=== PATIENT | male | born 1960 | race Caucasian/White ===

== ENCOUNTER → 2017-10-14 | Outpatient (CLI) | payer OTHER, BC | LOC: M CARPUL 08:36 | DX: I11.9 Hypertensive heart disease without heart failure (principal) | CPT/HCPCS: 93306 ==

== ENCOUNTER 2019-01-03 09:29 | Day surgery (SDC) | payer OTHER ==
[~2019-01-03] VITALS: Ht 188 cm; Wt 128.4 kg
[~2019-01-03 09:29] MED LIST: ASPI81TA85 PO; CETI10CH PO; DULO1CAP4 PO; FISH1000 PO; GEMF600T5 PO; GLIP5TAB20 PO; HYDR12CA PO; LOSA25TA14 PO; METF500T13 PO; METO50TA7 PO; NAPR250T4 PO; NS 1,000 ML IV ONE; OMEP20CA4 PO; PREG25CA PO; PROV100T25 PO; SING10TA32 PO
[2019-01-03] MEDS ORDERED: PROPOFOL 200 MG/20 ML VIAL As Ordered ONE ×3 (10:06→11:00)
[2019-01-03] MEDS ORDERED: LIDOCAINE 2% INJ 100 MG/5 ML SDV (FOR ANES.) As Ordered ONE (10:06)
--- NOTE | 2019-01-03 11:49 | ROOR ---
Patient Name: Nikolai Jean Procedure Date: 01/03/2019 10:32 AM Date of : 1960 Age: 58 Room: [facility] Gender: Male Note Status: Finalized Procedure: Upper GI endoscopy Indications: Esophageal reflux Providers: Myron Gandara MD Referring MD: Otto Oakes Md Requesting Provider: Medicines: Monitored Anesthesia Care Complications: No immediate complications. Procedure: Pre-Anesthesia Assessment: - Prior to the procedure, a History and Physical was performed, and patient medications and allergies were reviewed. The patient is competent. The risks and benefits of the procedure and the sedation options and risks were discussed with the patient. All questions were answered and informed consent was obtained. Patient identification and proposed procedure were verified by the physician, the nurse and the anesthesiologist in the endoscopy suite. Mental Status Examination: alert and oriented. Airway Examination: normal oropharyngeal airway and neck mobility. Respiratory Examination: clear to auscultation. CV Examination: normal. Prophylactic Antibiotics: The patient does not require prophylactic antibiotics. Prior Anticoagulants: The patient has taken aspirin, last dose was day of procedure. ASA Grade Assessment: III - A patient with severe systemic disease. After reviewing the risks and benefits, the patient was deemed in satisfactory condition to undergo the procedure. The anesthesia plan was to use monitored anesthesia care (MAC). Immediately prior to administration of medications, the patient was re-assessed for adequacy to receive sedatives. The heart rate, respiratory rate, oxygen saturations, blood pressure, adequacy of pulmonary ventilation, and response to care were monitored throughout the procedure. The physical status of the patient was re-assessed after the procedure. The Endoscope was introduced through the mouth, and advanced to the second part of duodenum. The upper GI endoscopy was accomplished without difficulty. The patient tolerated the procedure well. Findings: A few less than one mm polyps with no bleeding were found 25 cm from the incisors. The polyp was removed with a cold biopsy forceps. Resection and retrieval were complete. Localized mild mucosal changes characterized by cobble stone appearance with tiny polyps were found in the middle third of the esophagus. This was biopsied with a cold forceps for histology. Three tongues of salmon-colored mucosa were present from 36 to 38 cm. The maximum longitudinal extent of these esophageal mucosal changes was 1 cm in length. Biopsies were taken with a cold forceps for histology. Two flecks of blood, no actual bleeding linear gastric ulcers with pigmented material were found in the gastric antrum. The largest lesion was less than one mm in largest dimension. This was biopsied with a cold forceps for histology. Consistent with brunners gland hyperplasia mild mucosal variance characterized by nodularity was found in the duodenal bulb. Impression: - Esophageal polyp(s) were found. Resected and retrieved. - Cobble stone appearance with tiny polyps mucosa in the esophagus. Biopsied. - Marston-colored mucosa suspicious for Bee's esophagus. Biopsied. - Flecks of blood, no actual bleeding gastric ulcers with pigmented material. Biopsied. - Mucosal variant in the duodenum. Recommendation: - Discharge patient to home (ambulatory). - Await pathology results. - Use Protonix (pantoprazole) 40 mg PO daily indefinitely. Myron Gandara MD Myron Gandara MD 01/03/2019 11:48:58 AM Electronically signed by Myron Gandara MD Number of Addenda: 0 Note Initiated On: 01/03/2019 10:32 AM Estimated Blood Loss: Estimated blood loss was minimal.
--- NOTE | 2019-01-03 11:53 | ROOR ---
Patient Name: Nikolai Jean Procedure Date: 01/03/2019 10:34 AM Date of : 1960 Age: 58 Room: [facility] Gender: Male Note Status: Finalized Procedure: Colonoscopy Indications: High risk colon cancer surveillance: Personal history of colonic polyps Providers: Myron Gandara MD Referring MD: Otto Oakes Md Requesting Provider: Medicines: Monitored Anesthesia Care Complications: No immediate complications. Procedure: Pre-Anesthesia Assessment: - Prior to the procedure, a History and Physical was performed, and patient medications and allergies were reviewed. The patient is competent. The risks and benefits of the procedure and the sedation options and risks were discussed with the patient. All questions were answered and informed consent was obtained. Patient identification and proposed procedure were verified by the physician, the nurse and the anesthesiologist in the endoscopy suite. Mental Status Examination: alert and oriented. Airway Examination: normal oropharyngeal airway and neck mobility. Respiratory Examination: clear to auscultation. CV Examination: normal. Prophylactic Antibiotics: The patient does not require prophylactic antibiotics. Prior Anticoagulants: The patient has taken aspirin, last dose was day of procedure. ASA Grade Assessment: III - A patient with severe systemic disease. After reviewing the risks and benefits, the patient was deemed in satisfactory condition to undergo the procedure. The anesthesia plan was to use monitored anesthesia care (MAC). Immediately prior to administration of medications, the patient was re-assessed for adequacy to receive sedatives. The heart rate, respiratory rate, oxygen saturations, blood pressure, adequacy of pulmonary ventilation, and response to care were monitored throughout the procedure. The physical status of the patient was re-assessed after the procedure. The Colonoscope was introduced through the anus and advanced to the cecum, identified by the appendiceal orifice. The colonoscopy was technically difficult and complex due to poor bowel prep and the patient's body habitus. Successful completion of the procedure was aided by lavage. The patient tolerated the procedure fairly well. The quality of the bowel preparation was fair. Findings: The perianal and digital rectal examinations were normal. A diminutive polyp was found in the cecum. The polyp was sessile. The polyp was removed with a cold snare. Resection and retrieval were complete. Estimated blood loss was minimal. Three sessile polyps were found in the descending colon. The polyps were diminutive in size. These polyps were removed with a cold snare. Resection and retrieval were complete. Estimated blood loss was minimal. The retroflexed view of the distal rectum and anal verge was normal and showed no anal or rectal abnormalities. Impression: - Preparation of the colon was fair. - One diminutive polyp in the cecum, removed with a cold snare. Resected and retrieved. - Three diminutive polyps in the descending colon, removed with a cold snare. Resected and retrieved. - The distal rectum and anal verge are normal on retroflexion view. Recommendation: - Discharge patient to home (ambulatory). - Await pathology results. - Repeat colonoscopy in 5 weeks for surveillance. Myron Gandara MD Myron Gandara MD 01/03/2019 11:52:51 AM Electronically signed by Myron Gandara MD Number of Addenda: 0 Note Initiated On: 01/03/2019 10:34 AM Estimated Blood Loss: Estimated blood loss was minimal.
[2019-01-03 12:10] VITALS: BP 133/71
== END 2019-01-03 12:18 | disposition home or self-care (01) ==
LOC: M OPP 09:29
PROVIDERS: ATTEND Surgery
DX: Z12.11 Encounter for screening for malignant neoplasm of colon (principal); Z86.010 Personal history of colon polyps; D12.0 Benign neoplasm of cecum; D12.4 Benign neoplasm of descending colon; K21.9 Gastro-esophageal reflux disease without esophagitis; K22.8 Other specified diseases of esophagus; K31.89 Other diseases of stomach and duodenum; K25.9 Gastric ulcer, unspecified as acute or chronic, without hemorrhage or perforation; K22.70 Barrett's esophagus without dysplasia; I10 Essential (primary) hypertension; E78.5 Hyperlipidemia, unspecified; E11.9 Type 2 diabetes mellitus without complications; M19.90 Unspecified osteoarthritis, unspecified site; F41.9 Anxiety disorder, unspecified; F32.9 Major depressive disorder, single episode, unspecified; G47.30 Sleep apnea, unspecified; R06.83 Snoring; Z87.720 Personal history of (corrected) congenital malformations of eye; Z87.891 Personal history of nicotine dependence; Z91.048 Other nonmedicinal substance allergy status; Z91.018 Allergy to other foods; Z79.82 Long term (current) use of aspirin; Z79.899 Other long term (current) drug therapy; Z79.84 Long term (current) use of oral hypoglycemic drugs

== ENCOUNTER → 2022-01-13 | Outpatient (CLI) | payer BC, OTHER ==
[~2022-01-13] MED LIST changes: -ASPI81TA85 PO; +ASPI81TA86 PO; +LOSA25TA13 PO; -LOSA25TA14 PO; +NAPR-849 PO; -NAPR250T4 PO; -NS 1,000 ML IV ONE; +OMEP1CAP73 PO; -OMEP20CA4 PO
[2022-01-13 15:34] LABS: BASO # 0.1 10^3/uL (0.0-0.2); EOS # 1.1 10^3/uL (0.0-0.5); EOS % 15.3 % (0.0-3.0); HEMATOCRIT 44.5 % (42.0-52.0); HEMOGLOBIN 14.4 g/dl (13.5-17.5); LYMPH # 1.2 10^3/uL (1.5-5.0); LYMPH % 16.2 % (24.0-44.0); MEAN CORPUSCULAR HGB CONC 32.4 g/dl (32.0-36.5); MEAN CORPUSCULAR VOLUME 92.7 fl (80.0-96.0); MONO # 0.8 10^3/uL (0.0-0.8); MONO % 11.6 % (2.0-8.0); NEUTROPHILS % 55.3 % (36.0-66.0); PLATELET COUNT, AUTOMATED 196 10^3/uL (150-450); WHITE BLOOD COUNT 7.2 10^3/uL (4.0-10.0)
[2022-01-13 16:44] LABS: ERYTHROCYTE SEDIMENTATION RATE 4 mm/hr (0-20)
== END ==
LOC: M LAB 12:10 → M PLALAB 12:10
PROVIDERS: ATTEND Orthopaedic Surgery
DX: Z47.89 Encounter for other orthopedic aftercare (principal); Z79.899 Other long term (current) drug therapy

== ENCOUNTER 2022-03-23 22:14 | Emergency (ER) | payer BC, OTHER ==
[~2022-03-23] VITALS: Ht 188 cm; Wt 118.2 kg
[2022-03-24 07:32] LABS: BASO % 0.7 % (0.0-1.0); EOS # 0.7 10^3/uL (0.0-0.5); EOS % 12.2 % (0.0-3.0); HEMATOCRIT 41.2 % (42.0-52.0); HEMOGLOBIN 13.9 g/dl (13.5-17.5); LYMPH # 1.1 10^3/uL (1.5-5.0); LYMPH % 21.1 % (24.0-44.0); MEAN CORPUSCULAR HEMOGLOBIN 30.2 pg (27.0-33.0); MEAN CORPUSCULAR HGB CONC 33.7 g/dl (32.0-36.5); MEAN CORPUSCULAR VOLUME 89.6 fl (80.0-96.0); MONO # 0.6 10^3/uL (0.0-0.8); MONO % 11.8 % (2.0-8.0); NEUTROPHILS # 2.9 10^3/uL (1.5-8.5); NEUTROPHILS % 53.8 % (36.0-66.0); PLATELET COUNT, AUTOMATED 127 10^3/uL (150-450); WHITE BLOOD COUNT 5.4 10^3/uL (4.0-10.0)
[2022-03-24 08:05] LABS: ALBUMIN 3.5 G/DL (3.2-5.2); BILIRUBIN,DIRECT 0.4 MG/DL (<0.4); BILIRUBIN,TOTAL 1.1 MG/DL (0.3-1.2); TOTAL PROTEIN 6.2 G/DL (5.7-8.2)
[2022-03-24] MEDS ORDERED: NS 1,000 ML IV ONE (08:10)
[2022-03-24 08:22] LABS: HEMOGLOBIN A1c 8.5 % (4.0-6.0)
[2022-03-24 08:32] LABS: BLOOD UREA NITROGEN 28 MG/DL (9-23); CALCIUM LEVEL 8.4 MG/DL (8.5-10.1); CARBON DIOXIDE LEVEL 23 MMOL/L (20-31); CHLORIDE LEVEL 102 MMOL/L (98-107); CREATININE FOR GFR 0.89 MG/DL (0.70-1.30); GLOMERULAR FILTRATION RATE > 60.0 (>56); GLUCOSE, FASTING 186 MG/DL (60-100); POTASSIUM SERUM 3.7 MMOL/L (3.5-5.1); SODIUM LEVEL 138 MMOL/L (136-145)
[2022-03-24 08:34] LABS: VENOUS BASE EXCESS -2.8 (-2.0-2.0); VENOUS HCO3 23.3 MEQ/L (23.0-27.0); VENOUS O2 SATURATION 91.4 % (60.0-80.0); VENOUS PARTIAL PRESSURE CO2 45.2 mmHg (38.0-50.0); VENOUS PARTIAL PRESSURE O2 67.1 mmHg (30.0-50.0); VENOUS TOTAL CO2 24.7 MEQ/L (24.0-28.0)
[2022-03-24 10:24] VITALS: BP 128/54
== END 2022-03-24 10:28 | disposition home or self-care (01) ==
LOC: M ED 22:14
DX: E11.65 Type 2 diabetes mellitus with hyperglycemia (principal); Z79.82 Long term (current) use of aspirin; Z79.84 Long term (current) use of oral hypoglycemic drugs; Z79.899 Other long term (current) drug therapy; Z91.89 Other specified personal risk factors, not elsewhere classified; Z91.040 Latex allergy status; Z91.013 Allergy to seafood

== ENCOUNTER 2022-04-28 11:45 | Emergency (ER) | payer OTHER ==
[~2022-04-28] VITALS: Ht 190.5 cm; Wt 125.3 kg
[2022-04-28] MEDS ORDERED: NEOSPORIN OINT 0.9 GM PKT TOP ONE (16:45)
[2022-04-28] MEDS ORDERED: BACI500O8 TOP (16:47)
[2022-04-28] MEDS ORDERED: DOXY-443 PO (16:47)
[2022-04-28 17:04] VITALS: BP 131/67
== END 2022-04-28 18:01 | disposition home or self-care (01) ==
LOC: M ED 11:45
DX: L03.011 Cellulitis of right finger (principal); Z91.040 Latex allergy status; Z91.09 Other allergy status, other than to drugs and biological substances; Z79.82 Long term (current) use of aspirin; Z79.899 Other long term (current) drug therapy

== ENCOUNTER 2023-01-07 15:55 | Emergency (ER) | payer OTHER ==
[~2023-01-07] VITALS: Ht 188 cm; Wt 106.8 kg
[~2023-01-07 15:55] MED LIST changes: +BACI500O8 TOP; +DOXY-443 PO; +MONT-5 PO; -SING10TA32 PO
[2023-01-07] MEDS ORDERED: SEMA1PEN2 (16:09)
[2023-01-07 17:02] LABS: BASO % 0.5 % (0.0-1.0); EOS # 0.8 10^3/uL (0.0-0.5); EOS % 14.4 % (0.0-3.0); HEMATOCRIT 43.9 % (42.0-52.0); HEMOGLOBIN 14.9 g/dl (13.5-17.5); LYMPH # 1.8 10^3/uL (1.5-5.0); LYMPH % 31.2 % (24.0-44.0); MEAN CORPUSCULAR HEMOGLOBIN 29.2 pg (27.0-33.0); MEAN CORPUSCULAR HGB CONC 33.9 g/dl (32.0-36.5); MEAN CORPUSCULAR VOLUME 85.9 fl (80.0-96.0); MONO # 0.4 10^3/uL (0.0-0.8); MONO % 7.5 % (2.0-8.0); NEUTROPHILS # 2.7 10^3/uL (1.5-8.5); NEUTROPHILS % 46.2 % (36.0-66.0); PLATELET COUNT, AUTOMATED 139 10^3/uL (150-450); RED BLOOD COUNT 5.11 10^6/uL (4.30-6.10); WHITE BLOOD COUNT 5.8 10^3/uL (4.0-10.0)
[2023-01-07 17:14] LABS: LIPASE 42 U/L (12-53)
[2023-01-07 17:16] LABS: ALBUMIN 3.6 G/DL (3.2-5.2); ALKALINE PHOSPHATASE 71 U/L (46-116); ALT/SGPT 67 U/L (7.0-40); AST/SGOT 39 U/L (<34); BILIRUBIN,DIRECT 0.4 MG/DL (<0.4); BILIRUBIN,TOTAL 1.1 MG/DL (0.3-1.2); BLOOD UREA NITROGEN 18 MG/DL (9-23); CALCIUM LEVEL 8.7 MG/DL (8.3-10.6); CARBON DIOXIDE LEVEL 29 MMOL/L (20-31); CHLORIDE LEVEL 107 MMOL/L (98-107); CREATININE FOR GFR 0.87 MG/DL (0.70-1.30); GLOMERULAR FILTRATION RATE > 60.0 (>49); GLUCOSE, FASTING 186 MG/DL (74-106); POTASSIUM SERUM 3.8 MMOL/L (3.5-5.1); SODIUM LEVEL 143 MMOL/L (136-145)
[2023-01-07 18:40] LABS: HCG, SERUM QUALITATIVE NEGATIVE
[2023-01-07] MEDS ORDERED: ISOVUE-370 76% 100ML VIAL As Ordered ONE (19:27)
[2023-01-07] MEDS ORDERED: ONDA4TAB6 PO (21:21)
[2023-01-07 21:51] LABS: GC DNA AMPLIFICATION NEGATIVE (NEGATIVE)
[2023-01-07 22:09] VITALS: BP 128/74; TEMP 96.8; O2SAT 96
== END 2023-01-07 22:11 | disposition home or self-care (01) ==
LOC: M ED 15:55
DX: K59.00 Constipation, unspecified (principal); R10.31 Right lower quadrant pain; R10.32 Left lower quadrant pain; E11.40 Type 2 diabetes mellitus with diabetic neuropathy, unspecified; I10 Essential (primary) hypertension; Z79.82 Long term (current) use of aspirin; Z79.84 Long term (current) use of oral hypoglycemic drugs; Z79.899 Other long term (current) drug therapy; Z87.891 Personal history of nicotine dependence; Z91.013 Allergy to seafood; Z91.040 Latex allergy status; Z91.89 Other specified personal risk factors, not elsewhere classified
CPT/HCPCS: 71101; 74177; 76870; 80048; 80076; 81001; 83690; 84703; 85025; 87661; 87810; 87850; 93005; 93976; 99284; Q9967

== ENCOUNTER 2023-01-22 15:48 | Emergency (ER) | payer OTHER ==
[~2023-01-22] VITALS: Ht 190.5 cm; Wt 104.5 kg
[~2023-01-22 15:48] MED LIST changes: +ONDA4TAB6 PO; +SEMA1PEN2
[2023-01-22 16:00] VITALS: TEMP 98
[2023-01-22] MEDS ORDERED: HYDR-3363 (16:20)
[2023-01-22] MEDS ORDERED: NS 1,000 ML IV ONE (16:40)
[2023-01-22 16:54] LABS: BASO % 0.5 % (0.0-1.0); EOS # 0.8 10^3/uL (0.0-0.5); EOS % 12.6 % (0.0-3.0); HEMOGLOBIN 13.5 g/dl (13.5-17.5); LYMPH # 1.4 10^3/uL (1.5-5.0); LYMPH % 21.7 % (24.0-44.0); MEAN CORPUSCULAR HEMOGLOBIN 28.5 pg (27.0-33.0); MEAN CORPUSCULAR HGB CONC 32.9 g/dl (32.0-36.5); MEAN CORPUSCULAR VOLUME 86.7 fl (80.0-96.0); MONO # 0.6 10^3/uL (0.0-0.8); MONO % 8.8 % (2.0-8.0); NEUTROPHILS # 3.5 10^3/uL (1.5-8.5); NEUTROPHILS % 56.2 % (36.0-66.0); PLATELET COUNT, AUTOMATED 118 10^3/uL (150-450); RED BLOOD COUNT 4.73 10^6/uL (4.30-6.10); WHITE BLOOD COUNT 6.3 10^3/uL (4.0-10.0)
[2023-01-22 17:10] LABS: ETHYL ALCOHOL (ETHANOL) < 0.003 % (0.000-0.010)
[2023-01-22 17:12] LABS: ALBUMIN 3.5 G/DL (3.2-5.2); ALKALINE PHOSPHATASE 76 U/L (46-116); ALT/SGPT 61 U/L (7.0-40); AST/SGOT 36 U/L (<34); BILIRUBIN,DIRECT 0.3 MG/DL (<0.4); BILIRUBIN,TOTAL 0.9 MG/DL (0.3-1.2); BLOOD UREA NITROGEN 16 MG/DL (9-23); CALCIUM LEVEL 8.7 MG/DL (8.3-10.6); CARBON DIOXIDE LEVEL 28 MMOL/L (20-31); CHLORIDE LEVEL 105 MMOL/L (98-107); CK-MB VALUE MASS 6.3 NG/ML (<3.6); CPK CREATINE PHOSPHOKINASE 528 U/L (46-171); CREATININE FOR GFR 0.73 MG/DL (0.70-1.30); GLOMERULAR FILTRATION RATE > 60.0 (>49); GLUCOSE, FASTING 136 MG/DL (74-106); MAGNESIUM LEVEL 2.2 MG/DL (1.8-2.4); MB/CK RELATIVE INDEX 1.19 (< OR =4); SODIUM LEVEL 142 MMOL/L (136-145); TOTAL PROTEIN 5.8 G/DL (5.7-8.2)
[2023-01-22 17:14] LABS: THYROID STIMULATING HORMONE 1.229 uIU/ML (0.55-4.78)
[2023-01-22 17:19] LABS: HEMOGLOBIN A1c 6.4 % (4.0-6.0)
[2023-01-22 17:27] LABS: INR 1.05; PARTIAL THROMBOPLASTIN TIME 24.4 SECONDS (24.8-34.2); PROTHROMBIN TIME 13.4 SECONDS (12.5-14.5)
[2023-01-22 18:05] LABS: CK-MB VALUE MASS 6.1 NG/ML (<3.6)
[2023-01-22 18:07] LABS: MB/CK RELATIVE INDEX 1.31 (< OR =4)
[2023-01-22 18:15] VITALS: BP 124/61; O2SAT 94
[2023-01-22] MEDS ORDERED: HYDR-3363 PO (20:01)
[2023-01-22] MEDS ORDERED: INSU100V13 SQ (20:01)
[2023-01-22] MEDS ORDERED: METO100T5 PO (20:04)
[2023-01-22] MEDS ORDERED: LOSA50TA28 PO (20:04)
[2023-01-22] MEDS ORDERED: AMLO1TAB25 PO (20:04)
[2023-01-22] MEDS ORDERED: ROSU40TA4 PO (20:11)
[2023-01-22] MEDS ORDERED: GLYX1TAB PO (20:11)
== END 2023-01-22 21:17 | disposition home or self-care (01) ==
LOC: M ED 15:48
DX: T50.905A Adverse effect of unspecified drugs, medicaments and biological substances, initial encounter (principal); B34.8 Other viral infections of unspecified site; E11.9 Type 2 diabetes mellitus without complications; I10 Essential (primary) hypertension; F17.200 Nicotine dependence, unspecified, uncomplicated; Z79.82 Long term (current) use of aspirin; Z79.899 Other long term (current) drug therapy; Z91.013 Allergy to seafood; Z91.040 Latex allergy status; Z91.89 Other specified personal risk factors, not elsewhere classified

== ENCOUNTER 2023-05-21 14:21 | Emergency (ER) | payer OTHER ==
[~2023-05-21] VITALS: Ht 188 cm; Wt 110.6 kg
[~2023-05-21 14:21] MED LIST changes: +AMLO1TAB25 PO; +GLYX1TAB PO; +HYDR-3363; +HYDR-3363 PO; +INSU100V13 SQ; +LOSA50TA28 PO; +METO100T5 PO; +ROSU40TA4 PO
[2023-05-21] MEDS ORDERED: GOOD8.6T2 (14:45)
[2023-05-21] MEDS ORDERED: PREG300C2 (14:45)
[2023-05-21] MEDS ORDERED: NIAC500T29 (14:45)
[2023-05-21 15:20] LABS: BASO % 0.7 % (0.0-1.0); EOS # 0.5 10^3/uL (0.0-0.5); EOS % 8.8 % (0.0-3.0); HEMATOCRIT 45.5 % (42.0-52.0); HEMOGLOBIN 15.1 g/dl (13.5-17.5); LYMPH # 1.1 10^3/uL (1.5-5.0); MEAN CORPUSCULAR HEMOGLOBIN 28.8 pg (27.0-33.0); MEAN CORPUSCULAR HGB CONC 33.2 g/dl (32.0-36.5); MEAN CORPUSCULAR VOLUME 86.7 fl (80.0-96.0); MONO # 0.5 10^3/uL (0.0-0.8); MONO % 9.5 % (2.0-8.0); NEUTROPHILS # 3.4 10^3/uL (1.5-8.5); NEUTROPHILS % 60.6 % (36.0-66.0); PLATELET COUNT, AUTOMATED 162 10^3/uL (150-450); RED BLOOD COUNT 5.25 10^6/uL (4.30-6.10); WHITE BLOOD COUNT 5.6 10^3/uL (4.0-10.0)
[2023-05-21 15:47] LABS: LIPASE 52 U/L (12-53)
[2023-05-21 15:49] LABS: ALBUMIN 3.8 G/DL (3.2-5.2); ALKALINE PHOSPHATASE 76 U/L (46-116); ALT/SGPT 34 U/L (7.0-40); AST/SGOT 22 U/L (<34); BILIRUBIN,DIRECT 0.4 MG/DL (<0.4); BILIRUBIN,TOTAL 1.2 MG/DL (0.3-1.2); BLOOD UREA NITROGEN 22 MG/DL (9-23); CALCIUM LEVEL 9.6 MG/DL (8.3-10.6); CARBON DIOXIDE LEVEL 28 MMOL/L (20-31); CHLORIDE LEVEL 107 MMOL/L (98-107); GLOMERULAR FILTRATION RATE > 60.0 (>49); GLUCOSE, FASTING 97 MG/DL (74-106); POTASSIUM SERUM 4.3 MMOL/L (3.5-5.1); SODIUM LEVEL 140 MMOL/L (136-145); TOTAL PROTEIN 6.4 G/DL (5.7-8.2)
[2023-05-21] MEDS ORDERED: ISOVUE-370 76% 100ML VIAL As Ordered ONE (20:33)
[2023-05-21 21:43] VITALS: BP 168/86; TEMP 98.4; O2SAT 97
== END 2023-05-21 21:55 | disposition home or self-care (01) ==
LOC: M ED 14:21
DX: D17.1 Benign lipomatous neoplasm of skin and subcutaneous tissue of trunk (principal); E11.9 Type 2 diabetes mellitus without complications; I10 Essential (primary) hypertension; H02.401 Unspecified ptosis of right eyelid; G47.33 Obstructive sleep apnea (adult) (pediatric); Z87.891 Personal history of nicotine dependence; Z91.013 Allergy to seafood; Z91.040 Latex allergy status; Z88.8 Allergy status to other drugs, medicaments and biological substances; Z79.84 Long term (current) use of oral hypoglycemic drugs; Z79.899 Other long term (current) drug therapy; Z79.82 Long term (current) use of aspirin; Z79.4 Long term (current) use of insulin
CPT/HCPCS: 36415; 74177; 76705; 80048; 80076; 83690; 85025; 99284; Q9967

== ENCOUNTER → 2023-05-30 | Outpatient (REF) | payer OTHER ==
[~2023-05-30] MED LIST changes: +GOOD8.6T2; +NIAC500T29; +PREG300C2
[2023-05-30 17:41] LABS: APPEARANCE, URINE CLEAR (CLEAR); BACTERIA, URINE AUTO NEGATIVE (NEGATIVE); BILIRUBIN, URINE AUTO NEGATIVE (NEGATIVE); BLOOD, URINE BLOOD NEGATIVE (NEGATIVE); COLOR, URINE STRAW (YELLOW); GLUCOSE, URINE (UA) AUTO 3+ mg/dL (NEGATIVE); KETONE, URINE AUTO NEGATIVE (NEGATIVE); LEUKOCYTE ESTERASE, URINE AUTO NEGATIVE (NEGATIVE); NITRITE, URINE AUTO NEGATIVE (NEGATIVE); PROTEIN, URINE AUTO NEGATIVE (NEGATIVE); RBC, URINE AUTO 0 /HPF (0-3); SPECIFIC GRAVITY URINE AUTO 1.017 (1.002-1.035); SQUAMOUS EPITHELIAL CELL UR AU 0 /HPF (0-6); UROBILINOGEN, URINE AUTO 0.2 mg/dL (0.0-2.0); WBC, URINE AUTO 0 /HPF (0-3)
== END ==
LOC: M SMT 16:51
PROVIDERS: ATTEND Nurse Practitioner Family
DX: R39.15 Urgency of urination (principal); B96.4 Proteus (mirabilis) (morganii) as the cause of diseases classified elsewhere

== ENCOUNTER 2023-07-29 06:45 | Day surgery (SDC) | payer BC, OTHER ==
[~2023-07-29] VITALS: Ht 188 cm; Wt 106.4 kg
[~2023-07-29 06:45] MED LIST changes: +ASPI-615 PO; +DOXY-323 PO; -DOXY-443 PO; +LANTINJ4 SQ; -ROSU40TA4 PO; +ROSU40TA63 PO; +SIMETHICONE 40MG/0.6ML DROPS 30ML As Ordered ONE; +TEST200I14 IM
[2023-07-29] MEDS: NS 1,000 ML IV ONE (07:16)
[2023-07-29] MEDS ORDERED: propofoL 200 MG/20 ML VIAL As Ordered ONE (07:29)
[2023-07-29] MEDS ORDERED: LIDOCAINE 2% INJ 100 MG/5 ML SYRINGE As Ordered ONE (07:29)
[2023-07-29 08:33] VITALS: BP 138/74; TEMP 96.8; O2SAT 95
== END 2023-07-29 08:36 | disposition home or self-care (01) ==
LOC: M OPP 06:45
PROVIDERS: ATTEND Surgery
DX: Z12.11 Encounter for screening for malignant neoplasm of colon (principal); K29.50 Unspecified chronic gastritis without bleeding; K21.00 Gastro-esophageal reflux disease with esophagitis, without bleeding; K22.89 Other specified disease of esophagus; K31.7 Polyp of stomach and duodenum; K30 Functional dyspepsia; Z86.010 Personal history of colon polyps; I10 Essential (primary) hypertension; Z90.49 Acquired absence of other specified parts of digestive tract; E11.9 Type 2 diabetes mellitus without complications; E78.00 Pure hypercholesterolemia, unspecified; G47.30 Sleep apnea, unspecified; Z87.891 Personal history of nicotine dependence; Z79.82 Long term (current) use of aspirin; Z79.899 Other long term (current) drug therapy; Z79.4 Long term (current) use of insulin

== ENCOUNTER 2023-10-21 07:10 | Day surgery (SDC) | payer OTHER ==
[~2023-10-21] VITALS: Ht 190.5 cm; Wt 102.8 kg
[~2023-10-21 07:10] MED LIST changes: +B-12100010 PO; -GOOD8.6T2; +GOOD8.6T2 PO; +LOPI600T PO; -NIAC500T29; +NIAC500T29 PO; +ONDA-282 PO; -ONDA4TAB6 PO; -PREG300C2; +PREG300C2 PO; -SIMETHICONE 40MG/0.6ML DROPS 30ML As Ordered ONE; +VITA100093 PO
[2023-10-21] MEDS: NS 1,000 ML IV ONE (07:45)
[2023-10-21] MEDS ORDERED: LIDOCAINE 2% 100MG/5ML SDV (FOR ANES.) As Ordered ONE (07:57)
[2023-10-21] MEDS ORDERED: propofoL 200 MG/20 ML VIAL As Ordered ONE (07:57)
[2023-10-21 09:45] VITALS: TEMP 97.3
[2023-10-21 10:07] VITALS: BP 145/72; O2SAT 98
== END 2023-10-21 10:16 | disposition home or self-care (01) ==
LOC: M OPP 07:10
PROVIDERS: ATTEND Surgery
DX: Z12.11 Encounter for screening for malignant neoplasm of colon (principal); Z86.010 Personal history of colon polyps; D12.6 Benign neoplasm of colon, unspecified; Z87.891 Personal history of nicotine dependence; E11.9 Type 2 diabetes mellitus without complications; G47.30 Sleep apnea, unspecified; Z99.89 Dependence on other enabling machines and devices; Z79.02 Long term (current) use of antithrombotics/antiplatelets; Z79.3 Long term (current) use of hormonal contraceptives; Z79.899 Other long term (current) drug therapy; Z88.6 Allergy status to analgesic agent; Z91.013 Allergy to seafood; Z91.040 Latex allergy status; Z91.048 Other nonmedicinal substance allergy status

== ENCOUNTER 2023-11-07 13:38 | Emergency (ER) | payer OTHER ==
[~2023-11-07] VITALS: Ht 182.9 cm; Wt 103.5 kg
[2023-11-07 18:22] LABS: HEMATOCRIT 44.2 % (42.0-52.0); HEMOGLOBIN 15.2 g/dl (13.5-17.5); MEAN CORPUSCULAR HEMOGLOBIN 31.4 pg (27.0-33.0); MEAN CORPUSCULAR HGB CONC 34.4 g/dl (32.0-36.5); MEAN CORPUSCULAR VOLUME 91.3 fl (80.0-96.0); PLATELET COUNT, AUTOMATED 132 10^3/uL (150-450); RED BLOOD COUNT 4.84 10^6/uL (4.30-6.10)
[2023-11-07 18:51] LABS: BLOOD UREA NITROGEN 23 MG/DL (9-23); CALCIUM LEVEL 9.2 MG/DL (8.3-10.6); CARBON DIOXIDE LEVEL 30 MMOL/L (20-31); CHLORIDE LEVEL 106 MMOL/L (98-107); CREATININE FOR GFR 0.72 MG/DL (0.70-1.30); GLOMERULAR FILTRATION RATE > 60.0 (>49); GLUCOSE, FASTING 94 MG/DL (74-106); POTASSIUM SERUM 4.2 MMOL/L (3.5-5.1); SODIUM LEVEL 139 MMOL/L (136-145)
[2023-11-07] MEDS ORDERED: ISOVUE-370 76% 100ML VIAL As Ordered ONE (18:59)
[2023-11-07 19:16] LABS: BILIRUBIN,DIRECT 0.3 MG/DL (<0.4); BILIRUBIN,TOTAL 0.9 MG/DL (0.3-1.2); TOTAL PROTEIN 6.8 G/DL (5.7-8.2)
[2023-11-07] MEDS ORDERED: MIRA3350 PO (21:11)
[2023-11-07 21:26] VITALS: BP 141/78; TEMP 97.9; O2SAT 96
== END 2023-11-07 21:28 | disposition home or self-care (01) ==
LOC: M ED 13:38
DX: K59.00 Constipation, unspecified (principal); K40.90 Unilateral inguinal hernia, without obstruction or gangrene, not specified as recurrent; E11.9 Type 2 diabetes mellitus without complications; K21.9 Gastro-esophageal reflux disease without esophagitis; E78.5 Hyperlipidemia, unspecified; Z79.82 Long term (current) use of aspirin; Z79.4 Long term (current) use of insulin; Z79.899 Other long term (current) drug therapy; Z88.8 Allergy status to other drugs, medicaments and biological substances; Z91.040 Latex allergy status; Z91.013 Allergy to seafood; Z91.89 Other specified personal risk factors, not elsewhere classified
CPT/HCPCS: 74177; 76857; 76870; 80048; 80076; 81001; 82150; 83605; 83690; 85027; 93976; 99284; Q9967

== ENCOUNTER 2024-01-04 06:47 | Day surgery (SDC) | payer OTHER ==
[~2024-01-04] VITALS: Ht 190.5 cm; Wt 107.2 kg
[~2024-01-04 06:47] MED LIST changes: +DOCU5LIQ PO; -DOXY-323 PO; +DOXY-441 PO; +MIRA3350 PO; -ROSU40TA63 PO; +ROSU40TA81 PO; -SEMA1PEN2; +SEMA1PEN2 PO; +SYNJ1TAB3 PO
[2024-01-04] MEDS ORDERED: SUGAMMADEX SODIUM 500 MG/5 ML VIAL (BRIDION) As Ordered ONE (07:03)
[2024-01-04] MEDS ORDERED: ACETAMINOPHEN 1000MG 100ML IV BAG As Ordered ONE (07:03)
[2024-01-04] MEDS ORDERED: LIDOCAINE 2% 100MG/5ML SDV (FOR ANES.) As Ordered ONE (07:03)
[2024-01-04] MEDS ORDERED: ONDANSETRON 4MG 2ML VIAL As Ordered ONE (07:03)
[2024-01-04] MEDS ORDERED: ROCURONIUM BROMIDE 50MG/5ML VIAL As Ordered ONE (07:03)
[2024-01-04] MEDS ORDERED: propofoL 200 MG/20 ML VIAL As Ordered ONE (07:03)
[2024-01-04] MEDS ORDERED: fentaNYL 100 MCG/2 ML INJECTION As Ordered ONE (07:04)
[2024-01-04] MEDS ORDERED: MIDAZOLAM INJ 2MG/2ML VIAL As Ordered ONE (07:04)
[2024-01-04] MEDS ORDERED: INSULIN LISPRO (NovoLOG) PER UNIT SC PRN (07:20)
[2024-01-04] MEDS ORDERED: DEXTROSE 50% 50ML SYRINGE IV PRN (07:20)
[2024-01-04] MEDS ORDERED: GLUCOSE 4 GM CHEW PO PRN (07:20)
[2024-01-04] MEDS ORDERED: GLUCAGON INJ 1MG VIAL SC PRN (07:20)
[2024-01-04] MEDS: CelecoXIB 400 MG CAP PO ONE (07:30)
[2024-01-04] MEDS: LR 1,000 ML IV SCH (07:40)
[2024-01-04] MEDS: ceFAZolin SOD 2 GM in IV 1 EA IV ONE (07:45)
[2024-01-04] MEDS ORDERED: dexmedeTOMIDine (4MCG/ML)200MCG/50ML BTL (PRECEDEX) As Ordered ONE (08:55)
[2024-01-04] MEDS ORDERED: HYDROmorphone HCL 2MG/ML 1ML VIAL As Ordered ONE (08:55)
[2024-01-04] MEDS: LIDOCAINE 1% SDV 30ML VIAL As Ordered ONE (09:31)
[2024-01-04] MEDS ORDERED: fentaNYL 100 MCG/2 ML INJECTION IV PRN (09:35)
[2024-01-04] MEDS ORDERED: HYDROMORPHONE HCL 0.5 MG/ 0.5 ML SYRINGE IV PRN (09:35)
[2024-01-04] MEDS ORDERED: LR 1,000 ML IV SCH (09:35)
[2024-01-04] MEDS: ONDANSETRON 4MG 2ML VIAL IV PRN (10:37)
[2024-01-04] MEDS: oxyCODONE 5MG TAB PO PRN (10:38)
[2024-01-04] MEDS ORDERED: oxyCODONE 5MG TAB PO PRN (11:10)
[2024-01-04 11:55] VITALS: BP 160/77; TEMP 97.6; O2SAT 95
== END 2024-01-04 12:15 | disposition home or self-care (01) ==
LOC: M SDC 06:47
PROVIDERS: ATTEND Surgery
DX: K40.90 Unilateral inguinal hernia, without obstruction or gangrene, not specified as recurrent (principal); K66.0 Peritoneal adhesions (postprocedural) (postinfection); Z93.1 Gastrostomy status; D17.6 Benign lipomatous neoplasm of spermatic cord; E11.9 Type 2 diabetes mellitus without complications; G47.30 Sleep apnea, unspecified; Z91.040 Latex allergy status; Z91.048 Other nonmedicinal substance allergy status; Z88.8 Allergy status to other drugs, medicaments and biological substances; Z91.013 Allergy to seafood; Z79.899 Other long term (current) drug therapy
CPT/HCPCS: 49650; C1781; J0131; J0665; J0690; J1100; J1171; J2250; J2405; J3010

== ENCOUNTER 2024-10-17 16:29 | Emergency (ER) | payer OTHER ==
[~2024-10-17] VITALS: Ht 188 cm; Wt 107.1 kg
[~2024-10-17 16:29] MED LIST changes: +GLIP-318 PO; -GLIP5TAB20 PO; -GOOD8.6T2 PO; +HYDR12.510 PO; -HYDR12CA PO; -PREG25CA PO; +PREG25CA63 PO; +SENN-117 PO
[2024-10-17] MEDS: PROPARACAINE 0.5% OPHTH SOL 15ML OS ONE (18:10)
[2024-10-17] MEDS: FLUORESCEIN OPHTH 1 MG STRIP OS ONE (18:10)
[2024-10-17] MEDS ORDERED: ERYT5OIN25 OS (18:54)
[2024-10-17] MEDS: ERYTHROMYCIN OPHTH OINT OS ONE (18:55)
[2024-10-17 18:59] VITALS: BP 113/59; TEMP 98.6; O2SAT 98
== END 2024-10-17 19:01 | disposition home or self-care (01) ==
LOC: M ED 16:29
DX: S05.02XA Injury of conjunctiva and corneal abrasion without foreign body, left eye, initial encounter (principal); H10.32 Unspecified acute conjunctivitis, left eye; X58.XXXA Exposure to other specified factors, initial encounter; Y92.009 Unspecified place in unspecified non-institutional (private) residence as the place of occurrence of the external cause; Y93.9 Activity, unspecified; Y99.9 Unspecified external cause status

== ENCOUNTER 2024-11-01 10:12 | Emergency (ER) | payer OTHER ==
[~2024-11-01] VITALS: Ht 190.5 cm; Wt 100.9 kg
[~2024-11-01 10:12] MED LIST changes: +ERYT5OIN25 OS
[2024-11-01] MEDS ORDERED: HOME MED LIST COMPLETE! XX SCH (11:10)
[2024-11-01 11:24] LABS: BASO # 0.1 10^3/uL (0.0-0.2); BASO % 0.9 % (0.0-1.0); EOS # 0.4 10^3/uL (0.0-0.5); EOS % 7.0 % (0.0-3.0); LYMPH # 0.8 10^3/uL (1.5-5.0); LYMPH % 14.7 % (24.0-44.0); MONO # 0.5 10^3/uL (0.0-0.8); MONO % 9.7 % (2.0-8.0); NEUTROPHILS # 3.8 10^3/uL (1.5-8.5); NEUTROPHILS % 67.2 % (36.0-66.0); PLATELET COUNT, AUTOMATED 238 10^3/uL (150-450)
[2024-11-01 11:45] LABS: INR 0.91
[2024-11-01 11:49] LABS: CALCIUM LEVEL 8.9 MG/DL (8.3-10.6); CARBON DIOXIDE LEVEL 27 MMOL/L (20-31); CHLORIDE LEVEL 105 MMOL/L (98-107); CREATININE FOR GFR 0.79 MG/DL (0.70-1.30); GLOMERULAR FILTRATION RATE > 90.0 (>49); POTASSIUM SERUM 4.5 MMOL/L (3.5-5.1); SODIUM LEVEL 143 MMOL/L (136-145)
[2024-11-01 12:22] VITALS: BP 147/76; TEMP 97.2; O2SAT 97
== END 2024-11-01 12:59 | disposition home or self-care (01) ==
LOC: M ED 10:12
DX: S90.415A Abrasion, left lesser toe(s), initial encounter (principal); I87.2 Venous insufficiency (chronic) (peripheral); X58.XXXA Exposure to other specified factors, initial encounter; Y92.9 Unspecified place or not applicable; Y93.9 Activity, unspecified; Y99.9 Unspecified external cause status; E11.40 Type 2 diabetes mellitus with diabetic neuropathy, unspecified; I10 Essential (primary) hypertension; Z79.82 Long term (current) use of aspirin; Z79.4 Long term (current) use of insulin; Z79.899 Other long term (current) drug therapy; Z88.8 Allergy status to other drugs, medicaments and biological substances; Z91.040 Latex allergy status; Z91.013 Allergy to seafood; Z91.89 Other specified personal risk factors, not elsewhere classified

== ENCOUNTER 2024-11-21 00:37 | Emergency (ER) | payer OTHER ==
[~2024-11-21] VITALS: Ht 188 cm; Wt 100.4 kg
[2024-11-21 09:08] LABS: ESTIMATED AVERAGE GLUCOSE 114.0 MG/DL (60-110)
[2024-11-21 09:32] VITALS: BP 136/64; TEMP 97.1; O2SAT 96
== END 2024-11-21 09:34 | disposition home or self-care (01) ==
LOC: M ED 00:37
DX: E11.649 Type 2 diabetes mellitus with hypoglycemia without coma (principal); I10 Essential (primary) hypertension; K21.9 Gastro-esophageal reflux disease without esophagitis; Z79.4 Long term (current) use of insulin; Z79.82 Long term (current) use of aspirin; Z79.899 Other long term (current) drug therapy; Z88.8 Allergy status to other drugs, medicaments and biological substances; Z91.018 Allergy to other foods; Z91.040 Latex allergy status